=== PATIENT | female | born 1975 | race Two or more races ===

== ENCOUNTER 2018-06-01 18:53 | Emergency (ER) | payer OTHER ==
[~2018-06-01] VITALS: Ht 162.6 cm; Wt 99.8 kg
[2018-06-01 18:56] VITALS: BP 151/97
[2018-06-01] MEDS ORDERED: Acetaminophen 500mg (ES) tab ORAL ONE (19:15)
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
[2018-06-01] MEDS ORDERED: IBUPROFEN600 MG ORAL (20:03)
[2018-06-01] MEDS ORDERED: LIDODERM700 M1 TOPIC (20:03)
[2018-06-01] MEDS ORDERED: ROBAXIN-750750 MG PO (20:03)
[2018-06-01 20:30] VITALS: BP 145/91
--- NOTE | 2018-06-02 12:03 | Diagnostic Imaging Report ---
Indication: Back pain Comparison: None Findings: 3 views of the lumbar spine were obtained. There is narrowing of L5-S1 discs. Marginal endplate spurs noted throughout the lumbar spine. Some sclerosis of the lower lumbar facets noted. There is no malalignment. IMPRESSION: Degenerative disease as described above
== END 2018-06-01 20:30 | disposition home or self-care (01) ==
LOC: EDBD 18:53 → EMR 19:10
DX: S39.012A Strain of muscle, fascia and tendon of lower back, initial encounter (principal); V43.52XA Car driver injured in collision with other type car in traffic accident, initial encounter; Y92.410 Unspecified street and highway as the place of occurrence of the external cause; E11.9 Type 2 diabetes mellitus without complications
CPT/HCPCS: 72020; 99283